=== PATIENT | female | born 1980 | race African-American/Black ===

== ENCOUNTER 2022-01-12 08:31 | Emergency (ER) | payer BC, MEDICAID ==
[~2022-01-12] VITALS: Ht 157.5 cm; Wt 84.5 kg
[2022-01-12 10:10] VITALS: BP 148/77
== END 2022-01-12 10:27 | disposition home or self-care (01) ==
LOC: ED 08:31
DX: M79.661 Pain in right lower leg (principal); F17.290 Nicotine dependence, other tobacco product, uncomplicated; Y04.2XXA Assault by strike against or bumped into by another person, initial encounter; Y92.009 Unspecified place in unspecified non-institutional (private) residence as the place of occurrence of the external cause